=== PATIENT | male | born 1940 | race Caucasian/White ===

== ENCOUNTER 2017-07-13 15:37 | Emergency (ER) | payer OTHER, BC ==
[2017-07-13] MEDS ORDERED: NORMAL SALINE 10 ML SYRINGE FLUSH IVP PRN (16:00)
--- NOTE | 2017-07-13 16:04 | EKG ---
[address] [address] Measurements Intervals [place] Rate: 70 P: 240 TN: 156 QRS: -24 QRSD: 142 T: 105 QT: 454 QTc: 474 Interpretive Statements ELECTRONIC ATRIAL PACEMAKER LEFT BUNDLE BRANCH BLOCK [120+ ms QRS DURATION, 80+ ms Q/S IN V1/V2, 85+ ms R IN I/aVL/V5/V6] INTERPRETATION BASED ON A DEFAULT AGE OF 40 YEARS No previous ECG available for comparison Electronically Signed On 07-14-17 10:55:23 MDT by Sukhjinder Geronimo MD [email or web address]
[2017-07-13 16:07] LABS: BASOPHILS # (AUTO) 0.05 10*3/UL; BASOPHILS % (AUTO) 0.7 % (0-1); EOSINOPHILS % (AUTO) 2.7 % (0-8); HEMATOCRIT 40.7 % (42.0-52.0); HEMOGLOBIN 13.5 g/dL (14.0-18.0); LYMPHOCYTES # (AUTO) 1.71 10*3/uL; MEAN CORPUSCULAR HEMOGLOBIN 29.3 PG (27-31); MEAN CORPUSCULAR HGB CONC 33.2 g/dL (33-37); MEAN CORPUSCULAR VOLUME 88.3 FL (80-90); MEAN PLATELET VOLUME 9.5 FL (7.4-12.2); MONOCYTES # (AUTO) 1.04 10*3/UL (0.3-0.8); MONOCYTES % (AUTO) 14.3 % (5-15); NEUTROPHILS # (AUTO) 4.27 10*3/UL; NEUTROPHILS % (AUTO) 58.7 % (50-80); RED BLOOD COUNT 4.61 10^6/uL (4.70-6.10)
[2017-07-13 16:14] LABS: CALCIUM 9.4 mg/dL (8.7-10.7); MAGNESIUM 2.4 mg/dL (1.6-2.4); SERUM ALBUMIN 4.3 g/dL (3.5-4.8)
[2017-07-13 16:18] LABS: PLATELET MORPHOLOGY COMMENT NORMAL MORPHOLOGY (NORM); RBC MORPHOLOGY COMMENT NORMAL MORPHOLOGY (NORM); WBC MORPHOLOGY COMMENT NORMAL MORPHOLOGY (NORM)
[2017-07-13 16:24] VITALS: RESP 20; TEMP 97.4
--- NOTE | 2017-07-13 16:47 | DI ---
PA /LATERAL CHEST X-RAY, 07/13/2017 4:00 PM : Clinical History: Diaphoresis. Weakness. Previous Exam: None at this facility. There is no acute soft tissue or bony abnormality. There is a dual-chamber pacemaker and the leads ar e in the appropriate position. The patient is status post mitral and aortic valve replacement. There is cardiomegaly. The vessels are slightly hazy consistent with mild CHF. Lungs are clear. Mediastinal structures are normal. There are no pulmonary nodules. Readin. There is no acute infiltrate or effusion. 2. Cardiomegaly with mild CHF. The patient is status post aortic and mitral valve replacement.
[2017-07-13] MEDS ORDERED: LACTATED RINGERS 1000 ML PRIMARY IV SCH (17:00)
[2017-07-13 17:30] LABS: BILIRUBIN,URINE NEGATIVE (NEG); CLARITY,URINE CLEAR (CLEAR); COLOR,URINE YELLOW; GLUCOSE, URINE (UA) NEGATIVE (NEG); NITRATE,URINE NEGATIVE (NEG); OCCULT BLOOD,URINE NEGATIVE (NEG); PROTEIN,URINE NEGATIVE (NEG); UROBILINOGEN,URINE 0.2 EU/dL (0.2)
[2017-07-13 17:31] LABS: URINE SAMPLE TYPE CLEAN CATCH URINE
--- NOTE | 2017-07-13 18:15 | PDOC ---
General Adult HPI - General Chief Complaint: General Medical Stated Complaint: DIAPHORETIC Date Seen by Provider: 07/13/17 Time Seen by Provider: 15:40 - History of Present Illness Initial Comment: Patient is a very nice 77-year-old gentleman who presents to the emergency department with complaints of diaphoresis and general malaise. They are visiting from out of town he states that they had a long day of travel but nothing out of the ordinary for him when [facility] he had a shot of bourbon mixed and some soda and not long after that was experiencing diaphoresis and feeling very weak and tremulous and decision was made to bring him to the emergency department. Here in the emergency department his symptoms are for the most part gone but he continues to have a little bit of diaphoresis. He is denying any edith chest pain but states that he doesn't feel right in his chest or anywhere for that matter. He states he's had episodes of diaphoresis like this in the past but this was a bit more intense than any in the past. His states that he did have some slurring of his speech and some increased weakness at the onset of this. At all seems to be gone. He has had some significant past medical history including history of pulmonary emboli after having DVT this was remote. He has also had 2 different bowel was replaced in his heart is anticoagulated currently. He is unsure if he 's ever had stress testing does not believe he's ever had a heart attack. Have you received a tetanus shot in the past 10 years?: Yes - Patient Home Medications Home Medications: Home Medications Amiodarone HCl 200 mg PO DAILY 07/13/17 Apixaban [Eliquis] 5 mg PO BID 07/13/17 Aspirin [Aspir 81] 81 mg PO DAILY 07/13/17 Carvedilol 6.25 mg PO BID 07/13/17 Cetirizine HCl 5 mg PO DAILY 07/13/17 Finasteride 5 mg PO DAILY 07/13/17 Fluoxetine HCl 20 mg PO BEDTIME 07/13/17 Lisinopril 5 mg PO BEDTIME 07/13/17 Simvastatin 20 mg PO BEDTIME 07/13/17 Terazosin HCl [Hytrin] 5 mg PO BEDTIME 07/13/17 - Patient Allergies Allergies/Adverse Reactions: Allergies Allergy/AdvReac Type Severity Reaction Status Date / Time No Known Allergies Allergy Unverified 07/13/17 16:05 Past Medical History - heen HEENT History: Denies History Cardiovascular History: Hypertension, CAD, Arrhythmia, Pacemaker, Valvular Heart Disease, Hyperlipidemia Respiratory History: Denies History Gastrointestinal History: Denies History Genitourinary History: Denies History Endocrine History: Denies History Musculoskeletal History: Denies History Neurological History: Denies History Psychiatric History: Denies History History of Sexually Transmitted Diseases: No Male Reproductive History: Other (please comment) Additional Male Reproductive History: BPH Cancer History: Colon Cancer Treatment / Date(s) of Treatment: 2002 In Past Year Been Physically Harmed or Verbally Threatened: No History of MDRO: No History of Other Communicable Diseases: No Tobacco Use: Former Smoker Alcohol Use: Occasionally Substance Use Type: None Previous Surgical History: Yes Type / Date of Surgery: AORTIC AND TRICUSPID REPLACEMENT, PACEMAKER, COLON RESECTION, MITRAL AND TRICUSPID REPAIR, TEETH PULLED , LEFT KNEE REPLACEMENT Anesthesia Reactions: No Significant Family History: Heart disease Past Medical History Reviewed: Reviewed - No Changes ROS - Limitations ROS Limitations: No Limitations Constitution: REPORTS: Denies Symptoms Cardiovascular: REPORTS: Denies Cardiac Symptoms Respiratory: REPORTS: Denies Resp Symptoms Gastrointestinal: REPORTS: Denies GI Symptoms General Adult Exam - General Appearance General Appearance: POSITIVE: Alert, Cooperative, No Acute Distress - HEENT HEENT: POSITIVE: Head Inspection Nml, Eyes Inspection Nml - Neck Neck: POSITIVE: Normal Inspection - Respiratory Respiratory: POSITIVE: No Respiratory Distress - Cardiovascular Cardiovascular: POSITIVE: Regular Rate & Rhythm - Abdomen Abdomen: Soft: (All Quadrants), Normal Bowel Sounds: (All Quadrants), Denies Tenderness: (All Quadrants) - Back Back: POSITIVE: Normal Inspection - Extremities Additional Extremities Details: Extremities are benign without rash lesion or significant edema General Adult Progress - Results Reviewed by me Xrays/CTs/US Reviewed by me: Yes Radiology Findings: Chest x-ray and CT angiogram of the chest are benign Lab Results Reviewed: Yes Lab Results:: Laboratory Results 07/13/17 07/13/17 Range/Units 15:50 16:00 WBC 7.28 (4.8-10.8) 10^3/uL RBC 4.61 L (4.70-6.10) 10^6/uL Hgb 13.5 L (14.0-18.0) g/dL Hct 40.7 L (42.0-52.0) % MCV 88.3 (80-90) FL MCH 29.3 (27-31) PG MCHC 33.2 (33-37) g/dL RDW Std Deviation 54.2 H (39-50) fL RDW Coeff of Dee 17.1 H (11.5-14.5) % Plt Count 233 (140-350) 10*3/uL MPV 9.5 (7.4-12.2) FL Immature Gran % (Auto) 0.1 (0-5) % Neut % (Auto) 58.7 (50-80) % Lymph % (Auto) 23.5 (10-50) % [place] % (Auto) 14.3 (5-15) % Eos % (Auto) 2.7 (0-8) % Baso % (Auto) 0.7 (0-1) % Immature Gran # (Auto) 0.01 10*3/UL Neut # (Auto) 4.27 10*3/UL Lymph # (Auto) 1.71 10*3/uL [place] # (Auto) 1.04 H (0.3-0.8) 10*3/UL Eos # (Auto) 0.20 10*3/UL Baso # (Auto) 0.05 10*3/UL WBC Morphology Comment Normal morphology (NORM) Plt Morphology Comment Normal morphology (NORM) RBC Morph Comment Normal morphology (NORM) D-Dimer 0.70 H (0.00-0.59) mg/L Sodium 140 (135-145) meq/L Potassium 4.2 (3.8-5.2) meq/L Chloride 104 (98-112) meq/L Carbon Dioxide 24 (23-33) meq/L Anion Gap 12 (5-20) BUN 22 (7-22) mg/dL Creatinine 1.0 (0.70-1.50) mg/dL Estimated GFR (>60 ml/min/1.73m(2)) BUN/Creatinine Ratio 22.00 H (6-20) Glucose 101 (78-110) mg/dL Calculated Osmolality 292.0 (267-292) mOsm/kg Calcium 9.4 (8.7-10.7) mg/dL Magnesium 2.4 (1.6-2.4) mg/dL Total Bilirubin 0.5 (0.3-1.2) mg/dL AST 39 (21-57) IU/L ALT 50 (21-72) IU/L Alkaline Phosphatase 100 (38-126) IU/L Troponin I 0.015 (< 0.040) ng/mL Total Protein 7.4 (6.1-8.0) g/dL Albumin 4.3 (3.5-4.8) g/dL Globulin 3.0 (2.50-4.10) g/dL Albumin/Globulin Ratio 1.40 (1.3-2.0) mg/g Ur Collection Type Clean catch urine Urine Color Yellow Urine Clarity Clear (CLEAR) Urine pH 6.0 (5.0-8.5) Ur Specific [place] 1.010 (1.005-1.030) Urine Protein Negative (NEG) mg/dl Urine Glucose (UA) Negative (NEG) mg/dL Urine Ketones Negative (NEG) Urine Occult Blood Negative (NEG) Urine Nitrate Negative (NEG) Urine Bilirubin Negative (NEG) Urine Urobilinogen 0.2 (0.2) EU/dL Ur Leukocyte Esterase Negative (NEG) Ur Culture Indicated? Culture not set EKG Interpretation:: POSITIVE: Other (Left bundle branch block) - Patient's Progress MDM / ED Course: This patient presented with rapidly resolving symptoms of diaphoresis and some slurred speech and a general feeling of severe weakness and lethargy. We ruled him out for [place] with negative troponin and a EKG that showed left bundle branch block but no obvious other concerning findings we kept him on a phototypesetting equipment monitor which was benign. He had other lab work that was all benign with the exception of a elevated d-dimer. He does have history of pulmonary embolism and DVT therefore CT angiogram of his chest was performed and it was benign as well. He 's feeling much better his symptoms are basically all gone and is unclear what caused them. I have told them that this could be a symptom consistent with TIA versus reaction to the alcohol that he drank for an unknown neurologic phenomenon or vasovagal response. Ultimately it's unclear what caused his symptoms by don't see any acute issue that would require further workup or hospitalization at this time. I think we'll go ahead and let him go home have him return with any return of symptoms or any worsening at all. I would like him see his primary care provider as soon as possible. Patient Care Time - Estimated PCT Patient Care Time (In Minutes): 45 Vital Signs - Recent Vital Signs Vital Signs: Vital Signs (Last 8 hours) Temp Pulse Resp BP Pulse Ox 07/13/17 15:38 97.4 F 70 20 129/69 93 - VS Reviewed Vital Signs Reviewed: Yes Discharge Clinical Impression: Diaphoresis, Weakness, Near syncope Discharge Disposition: Discharged to Home Condition: Fair Patient Instructions Given at Discharge: Chest Pain (ED), Near Syncope (ED) Additional Instructions: Monitor symptoms closely return with any worsening Follow-up with her primary care provider soon as possible and consider cardiac stress testing or Holter monitor or neuro imaging or neurologic consultation. Take it easy and rest as much as possible the next few days Follow Up With: NONE,NONE [Primary Care Provider] -
--- NOTE | 2017-07-13 18:24 | DI ---
HISTORY: Chest pain and elevated d-dimer. COMPARISON: None available. TECHNIQUE: Multiple helically acquired CT images are obtained through the chest from CT chest angiog matias protocol. FINDINGS: A pacemaker is noted in good position. There is what appears to be an artificial aortic v alve. Coronary artery calcifications are seen. The pulmonary arteries are normal without filling defect or truncation to suggest pulmonary embolism. IMPRESSION: 1. No evidence of pulmonary embolism.
== END 2017-07-13 19:45 | disposition home or self-care (01) ==
LOC: ER 15:37
DX: R61 Generalized hyperhidrosis (principal); R55 Syncope and collapse; R53.1 Weakness; R47.81 Slurred speech; Z86.718 Personal history of other venous thrombosis and embolism; Z86.711 Personal history of pulmonary embolism; Z79.01 Long term (current) use of anticoagulants
CPT/HCPCS: 71020; 71275; 80053; 81003; 83735; 84484; 85025; 85379; 93005; 93010; 99283